=== PATIENT | male | born 1950 | race Caucasian/White ===

== ENCOUNTER 2020-11-12 08:23 | Outpatient (CLI) | payer MEDICARE, OTHER, SELFPAY | END 2020-11-12 08:24 | disposition home or self-care (01) | LOC: ANHSURGERY 08:27 | PROVIDERS: PCP Family Medicine; Visit Provider Urology | DX: Z20.818 Contact with and (suspected) exposure to other bacterial communicable diseases (principal); C61 Malignant neoplasm of prostate | CPT/HCPCS: 87086 ==

== ENCOUNTER 2020-11-15 01:26 | Outpatient (CLI) | payer MEDICARE, OTHER, SELFPAY ==
[2020-11-15 20:09] LABS: SARS-CoV-2 RNA PCR Negative
== END 2020-11-15 01:27 | disposition home or self-care (01) ==
LOC: ANHCOVIDDT 01:26
PROVIDERS: PCP Family Medicine; Visit Provider Urology
DX: Z01.812 Encounter for preprocedural laboratory examination (principal); Z20.822 Contact with and (suspected) exposure to COVID-19
CPT/HCPCS: C9803; U0003

== ENCOUNTER 2020-11-18 01:44 | Day surgery (SDC) | payer MEDICARE, OTHER, SELFPAY ==
[2020-11-11 08:27] VITALS: BMI 26.4
--- NOTE | 2020-11-17 10:34 | WPDANESEPPF ---
Anes - Initial Pre Proc Eval Procedure: Operation Date: 11/18/20 14:00 Proposed Procedures p Insertion SpaceOAR Hydrogel System - Nas Hairston MD Date/Time: 11/17/20 10:34 Surgeon: Nas Hairston MD Pre Op Diagnosis: prostate CA Patient Data Age: 70 Gender: M Height: 1.8 m Weight: 86 kg Allergies Allergy/AdvReac Type Severity Reaction Status Date / Time No Known Allergies Allergy Verified 11/18/20 12:05 Home Medications Medication Instructions Recorded Confirmed Type amlodipine-benazepril 1 cap PO QAM 11/11/20 11/18/20 History aspirin [Aspir-81] 81 mg PO DAILY 11/11/20 11/18/20 History isosorbide mononitrate 30 mg PO HS 11/11/20 11/18/20 History metoprolol succinate 25 mg PO QAM 11/11/20 11/18/20 History pantoprazole 40 mg PO DAILY 11/11/20 11/18/20 History rosuvastatin 20 mg PO DAILY 11/11/20 11/18/20 History Patient hx anesthesia problems: none Family hx anesthesia problems: none [facility] Past Medical History Medical History (Updated 11/17/20 @ 10:35 by Artie Willett DO) [place] esophagus CAD (coronary artery disease) GERD (gastroesophageal reflux disease) Hyperlipidemia Hypertension Prostate cancer Surgical History Surgical History (Updated 11/17/20 @ 10:35 by Artie Willett DO) History of coronary artery stent placement x3, 2002 & 2017 Social History Social History Smoking packs per day: 1.5 Smoking cigarettes per day: 30.0 Years smoked: 20 Smoking pack-years: 30.00 Smoking status: Former smoker Smoking end date: 05/18/87 Alcohol intake: current Drinks per week: 2 Alcohol use details: WINE Substance use: never Living arrangements: with family Additional living arrangements comments: Spiritual care concerns: No Anes - Eval Final PreProcedure Day of Procedure 11/17/20 10:34 Patient weight: overweight Heart: regular rate and rhythm Lungs: clear to auscultation and normal air movement Airway: Mallampati scale class III Neurological: alert and oriented Last oral intake: >/= 8 hours ASA classification: III Emergent: no Anesthetic plan: proceed Anesthesia type and monitoring: general LMA and standard monitoring Informed Consent: The patient's anesthetic plan and its attendant risks and benefits were discussed with the patient/family/POA. Questions were solicited and answers provided to the satisfaction of the patient/family/POA.
[2020-11-18] VITALS (10 sets, daily range): BP systolic 127–177; BP diastolic 60–78; PULSE 65–78; RESP 13–19; TEMP 36.1–36.4; O2SAT 98–100
--- NOTE | 2020-11-18 11:47 | WPDHPUPDATE1 ---
History and Physical Update Update Date/Time: 11/18/20 11:47 History and Physical has been reviewed, including an updated exam of the patient. There are NO changes in the patient's condition. Risks, benefits, and alternatives have been discussed and questions answered. Patient agrees to proceed with procedure.
--- NOTE | 2020-11-18 12:21 | WPDHPUPDATE1 ---
History and Physical Update Update Date/Time: 11/18/20 12:21 History and Physical has been reviewed, including an updated exam of the patient. There are NO changes in the patient's condition. Risks, benefits, and alternatives have been discussed and questions answered. Patient agrees to proceed with procedure. Proceed with space oar
[2020-11-18] MEDS: LACTATED RINGERS 1,000 ML 30 ML IV CONT (12:31)
[2020-11-18] MEDS: ceFAZolin 2 GM/D5W 50 ML 2 GM/50 ML BAG IVPB (13:34)
--- NOTE | 2020-11-18 13:50 | PM.PROC ---
Procedure Note - Detailed Date of procedure: 11/18/20 Pre-op diagnosis: prostate CA Post-op diagnosis: same Procedure performed: TRUS with space oar Description of procedure: Patient was taken the operative suite and correctly identified. Once anesthesia was obtained was placed in dorsal lithotomy position and prepped draped usual sterile fashion. Transrectal ultrasound was then performed. The prostate was visualized in both sagittal and transverse planes. Spinal needle was then inserted into the plane between the prostate and the rectum. Once in normal saline was injected after we aspirated no blood. There was good separation of the prostate the rectal wall. The needle was visualized both planes again. We then injected the prepared Space Oar mixture. Again there was very good separation of the planes. Patient tolerated procedure well without any complications is taken recovery stable condition. Anesthesia: GLMA Surgeon: Nas Hairston MD Drains: No Packing: No Pathology: none sent Complications: No immediate complications Condition: stable Disposition: PACU
[2020-11-18] MEDS: fentaNYL CITRATE INJ (*CRX) 100 MCG/2 ML VIAL 25 MCG IV PUSH ×2 (14:39→14:48)
== END 2020-11-18 16:00 | disposition home or self-care (01) ==
PROVIDERS: PCP Family Medicine; Visit Provider Urology
PROC: (CPT 55874; principal; 2020-11-18 14:00)
DX: C61 Malignant neoplasm of prostate (principal); I25.10 Atherosclerotic heart disease of native coronary artery without angina pectoris; I10 Essential (primary) hypertension; E78.5 Hyperlipidemia, unspecified; K21.9 Gastro-esophageal reflux disease without esophagitis; Z79.82 Long term (current) use of aspirin; Z95.5 Presence of coronary angioplasty implant and graft; Z87.891 Personal history of nicotine dependence
CPT/HCPCS: 55874; A9270; C1889; J0690; J1100; J2405; J2704; J3010; J7120